=== PATIENT | male | born 1950 | race Caucasian/White ===

== ENCOUNTER 2021-06-08 06:03 | Day surgery (SDC) | payer MEDICARE ==
[2021-05-29 13:52] VITALS: BMI 30.5
[~2021-06-08 06:03] MED LIST: ALPRAZolam 0.25 MG TAB PO PRN; ALPRAZolam 0.5 MG TAB PO PRN; ASPIRIN 325 MG TAB PO STA; HEPARIN SODIUM,PORCINE 10,000 UNIT in SODIUM CHLORIDE 0.9% 1,000 ML IRRIGATION PRN; HEPARIN SODIUM,PORCINE 2,500 UNIT in SODIUM CHLORIDE 0.9% 250 ML IRRIGATION PRN; NITROGLYCERIN SL TABS 0.4 MG TAB SUBLINGUAL PRN; SODIUM CHLORIDE 0.9% 1,000 ML in EMPTY BAG 1 BAG IV SCH
[2021-06-08] MEDS ORDERED: SODIUM CHLORIDE 0.9% 1,000 ML IV ONE (06:42)
[2021-06-08 07:00] VITALS: RESP 16; TEMP 99.1
[2021-06-08 07:09] LABS: INR 1.4 (<1.2); Prothrombin Time 14.8 sec (9.0-12.0)
[2021-06-08 07:21] LABS: Basophils % (A) 1 %; Eosinophils # (A) 0.2 k/uL (0-0.7); Eosinophils % (A) 3 %; HCT 41.9 % (39.0-53.0); HGB 14.1 gm/dL (13.0-17.5); Lymphocytes # (A) 2.7 k/uL (1.0-4.8); Lymphocytes % (A) 43 %; MCH 31.6 pg (25.0-35.0); MCHC 33.6 g/dL (31.0-37.0); MCV 93.8 fL (80.0-100.0); Mean Platelet Volume 7.3; Monocytes # (A) 0.4 k/uL (0-1.0); Monocytes % (A) 7 %; Neutrophils # (A) 2.7 k/uL (1.3-7.7); Neutrophils % (A) 44 %; Platelet Count 249 k/uL (150-450); RBC 4.46 m/uL (4.30-5.90); WBC 6.2 k/uL (3.8-10.6)
[2021-06-08 07:25] LABS: Calcium 9.1 mg/dL (8.4-10.2)
[2021-06-08] MEDS ORDERED: MIDAZOLAM 2 MG/2 ML VIAL IV ONE (07:43)
[2021-06-08] MEDS: LIDOCAINE 1% INJ 10MG/ML (20 ML MDV) SQ ONE ×2 (07:44→07:56)
[2021-06-08] MEDS ORDERED: HEPARIN SODIUM 1,000 UN/ML (10ML VL) IV ONE (07:48)
[2021-06-08] MEDS ORDERED: VERAPAMIL SYRINGE (5 MG/10 ML) INTRAARTER ONE (07:48)
[2021-06-08] MEDS ORDERED: fentaNYL (PF) 50 MCG/ML 2 ML AMP IV ONE (07:56)
[2021-06-08] MEDS ORDERED: RX INFO: IV CONTRAST WAS GIVEN 1 EACH MISC MISCELLANE PRN (08:08)
--- NOTE | 2021-06-08 08:14 | P.PCN ---
Date of Procedure: 06/08/21 Operative Findings: CARDIAC CATHETERIZATION PERFORMING PHYSICIAN: Michel Phillips MD, RPVI PROCEDURE PERFORMED: 1. Selective right and left coronary angiogram 2. Left heart catheterization 3. Selective right common femoral artery angiogram INDICATION: Chest discomfort concerning for angina COMPLICATION: None APPROACH: Right common femoral artery LEVEL OF SEDATION: Moderate sedation length of 24 minutes PROCEDURE DESCRIPTION: After obtaining an informed consent, the patient was brought to cardiac garden labourer. Initially I attempted right radial approach but the patient had severe tortuosity in the right subclavian and for that reason I could not engage his coronaries and for that reason I reported the right radial approach and I went on the right groin. Local anesthesia was performed using lidocaine subcutaneously. The right common femoral artery was cannulated using Seldinger technique, the guidewire passed easily, following that we advanced a 6 Slovak sheath dilator assembly, the wire and dilator were removed and sheath was flushed. Selective right and left coronary angiogram using a 6-Slovak JR4 and JL catheters. Following that we did left heart catheterization using 6-Slovak pigtail catheter. The procedure was completed there was no complication. SELECTIVE CORONARY ANGIOGRAM: The right coronary artery: This is a large caliber vessel and a dominant vessel. The RCA has inferior take off. Is angiographically normal. Left main: Is angiographically normal but calcified left main. Bifurcates into LCx and LAD The left circumflex: Is a large caliber vessel nondominant vessel. The LCx gives rises into the first and second obtuse marginal branches. OM1 has mild disease. On 2 appeared to be angiographically normal. The left anterior descending artery: Is a large caliber vessel. Its angiographically normal. Gives rise into a large diagonal branches seems to be angiographically normal. HEMODYNAMICS: The LVEDP was 10 mmHg with about 40 mmHg peak to peak gradient. CONCLUSION: 1. Calcified right and left coronary system 2. Mild nonobstructive coronary artery disease 3. Peak to peak gradient of 40 mmHg. POSTPROCEDURE MANAGEMENT: Obtain an echocardiogram to assess for aortic stenosis.
[2021-06-08] MEDS ORDERED: SODIUM CHLORIDE 0.9% 1,000 ML IV SCH (08:15)
[2021-06-08] MEDS ORDERED: IOPAMIDOL-370 125ML BTL INJ ONE (08:19)
[2021-06-08 13:48] VITALS: BP 152/78; PULSE 77
== END 2021-06-08 13:15 | disposition home or self-care (01) ==
LOC: CATHCVL 06:03
PROVIDERS: ATTEND Internal Medicine Interventional Cardiology
DX: I25.10 Atherosclerotic heart disease of native coronary artery without angina pectoris (principal); Z20.822 Contact with and (suspected) exposure to COVID-19
CPT/HCPCS: 93458; 80048; 85025; 85610; 87635; C1760; C1894 ×2; C1769 ×2; J2250; J2001; J3010; J1644; Q9967

== ENCOUNTER 2024-10-13 09:59 | Day surgery (SDC) | payer MEDICARE ==
[~2024-10-13 09:59] MED LIST changes: -ASPIRIN 325 MG TAB PO STA; -HEPARIN SODIUM,PORCINE 10,000 UNIT in SODIUM CHLORIDE 0.9% 1,000 ML IRRIGATION PRN; -HEPARIN SODIUM,PORCINE 2,500 UNIT in SODIUM CHLORIDE 0.9% 250 ML IRRIGATION PRN; -SODIUM CHLORIDE 0.9% 1,000 ML in EMPTY BAG 1 BAG IV SCH
[2024-10-13] MEDS: SODIUM CHLORIDE 0.9% 1,000 ML in EMPTY BAG 1 BAG IV SCH (10:28)
[2024-10-13] MEDS: ASPIRIN 325 MG TAB PO STA (10:28)
[2024-10-13] MEDS: IV FLUID CONTINUATION 1,000 ML IV ONE (10:33)
[2024-10-13 10:43] LABS: Basophils # (A) 0.05 10*3/uL (0.00-0.10); Basophils % (A) 0.7 %; Eosinophils # (A) 0.40 10*3/uL (0.04-0.35); Eosinophils % (A) 5.9 %; HCT 42.1 % (39.6-50.0); HGB 14.5 g/dL (13.0-17.0); Lymphocytes # (A) 2.34 10*3/uL (0.90-5.00); Lymphocytes % (A) 34.5 %; MCH 32.1 pg (27.0-32.0); MCHC 34.4 g/dL (32.0-37.0); MCV 93.1 fL (80.0-97.0); Monocytes # (A) 0.55 10*3/uL (0.20-1.00); Monocytes % (A) 8.1 %; Neutrophils # (A) 3.44 10*3/uL (1.80-7.70); Neutrophils % (A) 50.7 %; Platelet Count 228 10*3/uL (140-440); RBC 4.52 10*6/uL (4.40-5.60); RDW 13.3 % (11.5-14.5); WBC 6.79 10*3/uL (4.50-10.00)
[2024-10-13 10:52] LABS: African American GFR (CKD) 83 (>60 ml/min/1.73 sqM); Anion Gap 11 mmol/L; Blood Urea Nitrogen 15 mg/dL (9-20); Calcium 9.5 mg/dL (8.4-10.2); Carbon Dioxide 19 mmol/L (22-30); Chloride 109 mmol/L (98-107); Glucose 116 mg/dL (74-99); Non-African American GFR(CKD) 72 (>60 ml/min/1.73 sqM); Potassium 4.2 mmol/L (3.5-5.1); Sodium 139 mmol/L (137-145)
[2024-10-13] MEDS: HEPARIN SODIUM,PORCINE 10,000 UNIT in SODIUM CHLORIDE 0.9% 1,000 ML IRRIGATION PRN (12:21)
[2024-10-13] MEDS: HEPARIN SODIUM,PORCINE (1 ML) 2,500 UNIT in SODIUM CHLORIDE 0.9% 250 ML IRRIGATION PRN (12:21)
[2024-10-13] MEDS: MIDAZOLAM 2 MG/2 ML VIAL IVP ONE (12:50)
[2024-10-13] MEDS: fentaNYL (PF) 50 MCG/ML 2 ML AMP IVP ONE (12:50)
[2024-10-13] MEDS: LIDOCAINE 1% INJ 10MG/ML (20 ML MDV) SQ ONE (12:51)
[2024-10-13] MEDS: HEPARIN SODIUM 1,000 UN/ML (10ML VL) IVP ONE (13:03)
[2024-10-13] MEDS: TICAGRELOR 90 MG TAB PO ONE (13:04)
[2024-10-13] MEDS: PHENYLEPHRINE-0.9% NACL SYG 1,000 MCG/10 ML SYRINGE IVP ONE (13:18)
[2024-10-13] MEDS: ATROPINE SULFATE 0.1 MG/ML 10ML SYRINGE IVP ONE (13:22)
[2024-10-13] MEDS: IOPAMIDOL-370 100ML BTL INJ ONE ×2 (13:28→14:06)
[2024-10-13] MEDS: niCARdipine Syringe (1,000 mcg/10 mL) INTRACORON ONE (13:49)
[2024-10-13] MEDS: NITROGLYCERIN 1000MCG/10ML SYRINGE INTRACORON ONE (13:49)
[2024-10-13] MEDS ORDERED: ZOLPIDEM TARTRATE 10 MG PO PRN (13:57)
[2024-10-13] MEDS ORDERED: MAG HYDROX/AL HYDROX/SIMETH 30 ML CUP PO PRN (14:00)
[2024-10-13] MEDS ORDERED: RX INFO: IV CONTRAST WAS GIVEN 1 EACH MISC MISCELLANE PRN (14:00)
[2024-10-13] MEDS ORDERED: ATROPINE SULFATE 0.1 MG/ML 10ML SYRINGE IV PRN (14:00)
[2024-10-13] MEDS: SODIUM CHLORIDE 0.9% 1,000 ML IV ONE (14:54)
[2024-10-13] MEDS: ATORVASTATIN 80 MG TAB PO STA (15:00)
[2024-10-13] MEDS: GABAPENTIN 300 MG CAP PO SCH (18:23)
[2024-10-13] MEDS: TICAGRELOR 90 MG TAB PO SCH (20:29)
[2024-10-13] MEDS: APIXABAN 2.5 MG TABLET PO SCH (20:30)
[2024-10-13] MEDS: ATORVASTATIN 20 MG TAB PO SCH (20:30)
[2024-10-13] MEDS: METOPROLOL SUCCINATE (ER) 25 MG TAB.ER.24H PO SCH (20:30)
--- NOTE | 2024-10-13 21:58 | P.PCN ---
Date of Procedure: 10/13/24 Operative Findings: Cardiac catheterization and percutaneous coronary intervention Performing physician Michel Phillips MD Indication Symptomatic 74-year-old gentleman with abnormal stress test Procedure performed 1. Selective right and left coronary angiogram 2. Successful stenting of the mid LAD using 2.75 x 23 and 2.75 x 18 mm Xience AUBREE with an excellent angiographic results 3. Successful stenting of the first diagonal branch of the LAD using 2.75 x 23 mm Xience AUBREE with an excellent angiographic results 4. Adjunctive use of IVUS and IFR 5. Ultrasound-guided access of the right common femoral artery and selective right common femoral artery angiogram Indication Symptomatic 74-year-old gentleman with abnormal stress test Complications None Level of sedation Moderate with sedation length of 56 minutes Procedure description After obtaining informed consent the patient was brought to the cardiac Switcher. The right common femoral artery was cannulated using micropuncture technique under ultrasound guidance the micropuncture wire passed easily then I placed a 60 Greek 11 cm sheath at the right common femoral artery and a selective right and left coronary angiogram using JR4 and JL 3.5 catheters. After that I decided to do an IFR of the LAD. After that anticoagulation was initiated using heparin with continuous ACT monitoring. At that point after zeroing the valvular wire and equalizing between the valve the wire and guiding catheter which was JL 4 short tip guiding catheter the left main was engaged subsequently was wired using a valvular wire was IFR at 0.84. At that point I decided to intervene on the LAD. IVUS was advanced only to the proximal LAD but was not able to be advanced to the mid LAD. Also the IVUS was advanced to the diagonal. The LAD was measured around 2.5 to 2.75 mm so thus the diagonal. I did predilatation using 2.5 mm balloon before I deployed 2.75 x 23 mm stent and subsequently 2.75 x 15 mm stents. Both stents were postdilated using 3 mm NC balloon with final angiogram showing excellent angiographic results. For the diagonal branch I predilated using 3 mm NC balloon before I deployed a 2.75 x 23 mm as well with an angiogram showing also excellent angiographic results and the procedure was completed with no complication Selective coronary angiogram The RCA has an inferior takeoff with no evidence of high-grade stenosis and a large caliber vessel and the dominant vessel The left main is calcified with mild disease only The LCx is a large-caliber vessel nondominant vessel with no evidence of high- grade stenosis The LAD is a large-caliber vessel that calcified vessel and also medium to large caliber vessel with severe disease involving the mid LAD documented by Doppler wire and mild to moderate disease involving the proximal LAD and also critical disease involving the diagonal branch Conclusion 1. Intermediate disease involving the proximal LAD and severe disease involving the mid LAD. I did perform successful PCI of the mid LAD 2. Critical disease involving a large diagonal branch. I did perform successful PCI of the diagonal branch Postprocedure management Dual antiplatelet therapy for at least 6 months using aspirin and Brilinta Follow-up with the patient
[2024-10-13] MEDS: ZOLPIDEM 5 MG TAB PO PRN (23:01)
[2024-10-14 05:39] LABS: Basophils # (A) 0.03 10*3/uL (0.00-0.10); Basophils % (A) 0.5 %; Eosinophils # (A) 0.20 10*3/uL (0.04-0.35); Eosinophils % (A) 3.4 %; HCT 39.5 % (39.6-50.0); HGB 13.2 g/dL (13.0-17.0); Lymphocytes # (A) 1.62 10*3/uL (0.90-5.00); Lymphocytes % (A) 27.2 %; MCH 31.8 pg (27.0-32.0); MCHC 33.4 g/dL (32.0-37.0); MCV 95.2 fL (80.0-97.0); Monocytes # (A) 0.54 10*3/uL (0.20-1.00); Monocytes % (A) 9.1 %; Neutrophils # (A) 3.55 10*3/uL (1.80-7.70); Neutrophils % (A) 59.6 %; Platelet Count 195 10*3/uL (140-440); RBC 4.15 10*6/uL (4.40-5.60); RDW 13.3 % (11.5-14.5); WBC 5.95 10*3/uL (4.50-10.00)
[2024-10-14 05:57] LABS: African American GFR (CKD) 87 (>60 ml/min/1.73 sqM); Anion Gap 8 mmol/L; Blood Urea Nitrogen 13 mg/dL (9-20); Calcium 9.3 mg/dL (8.4-10.2); Carbon Dioxide 23 mmol/L (22-30); Chloride 108 mmol/L (98-107); Glucose 113 mg/dL (74-99); Non-African American GFR(CKD) 75 (>60 ml/min/1.73 sqM); Potassium 4.2 mmol/L (3.5-5.1); Sodium 139 mmol/L (137-145)
[2024-10-14] MEDS: PANTOPRAZOLE 40 MG TABLET PO SCH (06:35)
[2024-10-14 08:31] VITALS: BP 142/90; PULSE 77; TEMP 97.7
[2024-10-14] MEDS ORDERED: NON FORMULARY DRUG (Lysine [Lysine] 500 MG Tablet) PO SCH (09:00)
[2024-10-14] MEDS: VERAPAMIL SR 180 MG TABLET.ER PO SCH (09:04)
[2024-10-14] MEDS: FENOFIBRATE 160 MG TAB PO SCH (09:05)
[2024-10-14] MEDS: POTASSIUM CHLORIDE ER 10 MEQ TAB.ER.PRT PO SCH (09:05)
[2024-10-14] MEDS: ASPIRIN 81 MG PO SCH (09:05)
[2024-10-14 10:04] VITALS: RESP 18
[2024-10-14 11:03] VITALS: BMI 32.0
--- NOTE | 2024-10-15 07:04 | P.DS ---
Providers Attending physician: Michel Phillips Consults: 10/13/24 14:00 Consult Physician Routine Consulting Provider: [facility] Consult Reason/Comments: Post Interventional patient Do you want consulting provider notified?: Already Contacted Primary care physician: Marcelino Garcia MD Hospital Course: Patient is a pleasant 74-year-old gentleman who underwent recently successful PCI of the LAD. He was seen and evaluated yesterday morning. He was asymptomatic and hemodynamically stable. The patient is going to be discharged home on dual antiplatelet therapy and I will follow-up with the patient next week in the office Plan - Discharge Summary Discharge Rx Participant: No New Discharge Prescriptions: New Aspirin 81 mg PO DAILY #90 tab Ticagrelor [Brilinta] 90 mg PO BID #180 tab Continue Metoprolol Succinate (ER) [Toprol XL] 25 mg PO HS Lovastatin [Mevacor] 80 mg PO HS gemfibroziL [Lopid] 600 mg PO BID Apixaban [Eliquis] 2.5 mg PO BID Potassium Citrate 99 mg PO DAILY Zolpidem Tartrate [Ambien] 10 mg PO HS PRN PRN Reason: Insomnia Gabapentin [Gralise] 600 mg PO TID Verapamil HCl [Verapamil ER] 180 mg PO DAILY Omeprazole 20 mg PO DAILY Lysine 1,000 mg PO DAILY Discharge Medication List Lovastatin [Mevacor] 80 mg PO HS 05/25/21 [History] Metoprolol Succinate (ER) [Toprol XL] 25 mg PO HS 05/25/21 [History] Omeprazole 20 mg PO DAILY 05/25/21 [History] Verapamil HCl [Verapamil ER] 180 mg PO DAILY 05/25/21 [History] gemfibroziL [Lopid] 600 mg PO BID 05/25/21 [History] Apixaban [Eliquis] 2.5 mg PO BID 05/08/22 [History] Potassium Citrate 99 mg PO DAILY 05/08/22 [History] Zolpidem Tartrate [Ambien] 10 mg PO HS PRN 05/08/22 [History] Gabapentin [Gralise] 600 mg PO TID 10/13/24 [History] Lysine 1,000 mg PO DAILY 10/13/24 [History] Aspirin 81 mg PO DAILY #90 tab 10/14/24 [Rx] Ticagrelor [Brilinta] 90 mg PO BID #180 tab 10/14/24 [Rx] Follow up Appointment(s)/Referral(s): Michel Phillips MD [STAFF PHYSICIAN] - 1 Week (OFFICE WILL CALL PATIENT WITH A FOLLOW UP APPOINTMENT DATE/TIME. ) Patient Instructions/Handouts: Moderate Sedation (DC), Fall Prevention (DC), Heart Catheterization (DC), After Radial Heart Catheterization (GEN) Activity/Diet/Wound Care/Special Instructions: NO DRIVING FOR TWO DAYS OK TO SHOWER TOMORROW (REMOVE DRESSING FIRST/NO NEED TO REAPPLY DRESSING.) NO LOTIONS POWDERS OINTMENTS ON PUNCTURE SITE UNTIL COMPLETELY HEALED. NO SOAKING IN HOT TUBS, POOLS, DOING DISHES, SWIMMING FOR THREE DAYS TO AVOID RISK OF INFECTION. SIGNS OF INFECTION IE: FEVER, RASH, UNUSUAL DRAINAGE, KNOT OR HARD LUMP CONTACT DR TO BE EVALUATED. IF PUNCTURE SITE BLEEDS, APPLY FIRM PRESSURE AND GO TO ER. DO NOT DRIVE SELF. MEDICATIONS PER: DR LUNA WEIGHT RESTRICTION FOR WRIST IS 5 LBS FOR FIVE DAYS. FALL PRECAUTIONS FOR TODAY FOLLOW UP DIRECTED. Discharge Disposition: HOME SELF-CARE
== END 2024-10-14 13:19 | disposition home or self-care (01) ==
LOC: CATHCVL 09:59 → 6NMEDSUR 13:50 → CATHCVL 10-14 13:19
PROVIDERS: ATTEND Internal Medicine Interventional Cardiology
DX: I48.0 Paroxysmal atrial fibrillation (principal); I38 Endocarditis, valve unspecified; I10 Essential (primary) hypertension; E78.5 Hyperlipidemia, unspecified; Z95.5 Presence of coronary angioplasty implant and graft; Z79.01 Long term (current) use of anticoagulants; Z79.02 Long term (current) use of antithrombotics/antiplatelets; Z79.82 Long term (current) use of aspirin; Z79.899 Other long term (current) drug therapy
CPT/HCPCS: 99152; 99153; 92978; 93454; 93799; 80048 ×2; 85025 ×2; C9600; C9601; C1769 ×3; C1887; C1894; C1874 ×2; C1725 ×3; C1753; J2250; J1644 ×3; J2003; J0461; J3010; Q9967; J2371; J2305; 93458